=== PATIENT | male | born 1970 | race Two or more races ===

== ENCOUNTER 2023-03-08 21:07 | Emergency (ER) | payer OTHER, BC ==
[~2023-03-08] VITALS: Ht 165.1 cm; Wt 76.2 kg
[2023-03-08] MEDS ORDERED: INSULIN GL100 UNIT/2 SQ (23:18)
[2023-03-08] MEDS ORDERED: METFORMIN HCL500 M3 PO (23:19)
[2023-03-08] MEDS ORDERED: PIOGLITAZONE HC45 MG PO (23:20)
[2023-03-08] MEDS ORDERED: SEMGLEE (Y100 UNIT/2 SQ (23:21)
[2023-03-08] MEDS ORDERED: [UNRECOGNIZED DRUG - OTHER] MC (23:21)
[2023-03-09] MEDS ORDERED: LIDO700A20 TOP (01:20)
[2023-03-09 01:35] VITALS: BP 133/84
== END 2023-03-09 01:36 | disposition home or self-care (01) ==
LOC: ER 21:07
DX: S09.90XA Unspecified injury of head, initial encounter (principal); S16.1XXA Strain of muscle, fascia and tendon at neck level, initial encounter; S30.0XXA Contusion of lower back and pelvis, initial encounter; S80.11XA Contusion of right lower leg, initial encounter; W18.09XA Striking against other object with subsequent fall, initial encounter; Z79.4 Long term (current) use of insulin; Z79.899 Other long term (current) drug therapy
CPT/HCPCS: 70450; 71045; 72100; 72125; 99284-25; A9270